=== PATIENT | male | born 1935 | race Caucasian/White ===

== ENCOUNTER 2017-08-13 15:30 | Inpatient (IN) | payer MEDICARE ==
[~2017-08-13] VITALS: Ht 175.3 cm; Wt 83.9 kg
[~2017-08-13 15:30] MED LIST: ROSU10TA35 PO
[2017-08-13 17:18] VITALS: BP 128/63
[2017-08-13 17:25] LABS: BASOPHILS % (AUTO) 0.7 % (0.0-5.0); EOSINOPHILS % (AUTO) 1.7 % (0.0-8.0); HEMATOCRIT 33.8 % (42-54); MEAN CORPUSCULAR HEMOGLOBIN 27.8 pg (27.0-33.0); MEAN CORPUSCULAR HGB CONC 31.9 g/dL (32.0-36.0); MEAN CORPUSCULAR VOLUME 87.1 fL (79-99); NEUTROPHILS % (AUTO) 66.6 % (40.0-77.0); PLATELET COUNT (AUTO) 364 K/uL (130-400); RED BLOOD CELL COUNT(AUTO) 3.88 MIL/uL (4.50-6.20); RED CELL DISTRIBUTION WIDTH 18.2 % (11.0-15.5); WHITE BLOOD COUNT (AUTO) 7.1 K/uL (4.8-10.8)
[2017-08-13 17:34] LABS: CREATININE 1.1 mg/dL (0.5-1.5); POTASSIUM 4.9 mmol/L (3.5-5.1)
[2017-08-13 17:38] LABS: INR 0.97 (0.85-1.15); PROTHROMBIN TIME 10.2 SEC (9.6-11.6)
[2017-08-13] MEDS ORDERED: SENN-77 PO (17:46)
[2017-08-13] MEDS ORDERED: ASPI-1197 PO (17:46)
[2017-08-13] MEDS ORDERED: FERR-82 PO (17:46)
[2017-08-13] MEDS ORDERED: VITAMIN B12 PO (17:46)
[2017-08-13] MEDS ORDERED: GLUCOSAMIN PO (17:46)
[2017-08-13] MEDS ORDERED: FOLIC ACID PO (17:46)
[2017-08-13] MEDS ORDERED: VALS80TA29 PO (17:46)
[2017-08-13] MEDS ORDERED: METOPROLOL PO (17:46)
[2017-08-13] MEDS ORDERED: VALS40TA10 PO (17:46)
[2017-08-13] MEDS ORDERED: PANTOPRAZOLE PO (17:46)
[2017-08-13] MEDS ORDERED: TRAMADOL PO (17:46)
[2017-08-13] MEDS ORDERED: COQ10 PO (17:46)
[2017-08-13 18:01] LABS: APPEARANCE,URINE Cloudy (CLEAR); BILIRUBIN,URINE Negative (NEGATIVE); COLOR,URINE Yellow (YELLOW); GLUCOSE, URINE (UA) Negative (NEGATIVE); KETONES,URINE Negative (NEGATIVE); LEUKOCYTE ESTERASE ,URINE Moderate (NEGATIVE); NITRATE,URINE Positive (NEGATIVE); OCCULT BLOOD,URINE Negative (NEGATIVE); PH,URINE 5.5 (5.0-8.0); PROTEIN,URINE Negative (NEGATIVE); UROBILINOGEN,URINE 0.2 mg/dL (0.2-1.0)
[2017-08-13 18:51] LABS: BACTERIA,URINE Many /HPF (None Seen); RBC,URINE None Seen /HPF (0-1)
[2017-08-14] VITALS (24 sets, daily range): BP systolic 116–139; BP diastolic 55–72
[2017-08-14] MEDS ORDERED: WATER FOR INJECTION,STERILE 20 ML VIAL IJ ONE (08:00)
[2017-08-14] MEDS: CEFAZOLIN SODIUM 1 GM VIAL IVP ONE ×2 (08:00→16:10)
[2017-08-14] MEDS ORDERED: LEVOFLOXACIN 500 MG/D5W 100 ML 100 ML IV SCH (12:00)
[2017-08-14] MEDS ORDERED: LACTATED RINGERS 1000ML 1,000 ML IV ONE (13:28)
[2017-08-14] MEDS: LEVOFLOXACIN 500 MG/D5W 100 ML 100 ML IV SCH (13:42)
[2017-08-14] MEDS ORDERED: CELECOXIB 200 MG CAP ONE (14:44)
[2017-08-14] MEDS ORDERED: KETOROLAC TROMETHAMINE 15MG/ML ONE (14:44)
[2017-08-14] MEDS ORDERED: ACETAMINOPHEN EXTRA STRENGTH 500 MG TABLET ONE (14:44)
[2017-08-14] MEDS ORDERED: OXYCODONE HCL 10 MG TAB.SR.12H PO ONE (14:45)
[2017-08-14] MEDS ORDERED: BUPIVACAINE/EPI/PF 0.5% 30ML VIAL IJ ONE (15:11)
[2017-08-14] MEDS ORDERED: CEFAZOLIN SODIUM 1 GM VIAL ONE (15:11)
[2017-08-14] MEDS ORDERED: LIDOCAINE PF 2% 5ML ABBOJECT ONE (15:27)
[2017-08-14] MEDS ORDERED: NEOSTIGMINE METHYLSULFATE 1MG/ML IV ONE ×2 (15:27→17:36)
[2017-08-14] MEDS ORDERED: LIDOCAINE HCL-MPF 1% 5ML AMP IJ ONE (15:27)
[2017-08-14] MEDS ORDERED: LIDOCAINE HCL 2% JELLY 5 ML ONE (15:27)
[2017-08-14] MEDS ORDERED: LIDOCAINE HCL 4% LTA SOL 4 ML VIAL ONE (15:27)
[2017-08-14] MEDS ORDERED: GLYCOPYRROLATE 0.2 MG/ML 5 ML VIAL ONE ×2 (15:27→17:35)
[2017-08-14] MEDS ORDERED: FENTANYL CITRATE PF 50 MCG/1 ML 2ML VIAL ONE (15:28)
[2017-08-14] MEDS ORDERED: PROPOFOL 10 MG/ML 20ML VIAL IV ONE (15:28)
[2017-08-14] MEDS ORDERED: MIDAZOLAM HCL 1 MG/ML 2ML VIAL ONE (15:28)
[2017-08-14] MEDS: CEFAZOLIN SODIUM 1 GM VIAL ONE ×2 (15:43→16:25)
[2017-08-14] MEDS: TRANEXAMIC ACID 1000MG/10ML IV ONE ×2 (15:45→18:05)
[2017-08-14] MEDS ORDERED: EPHEDRINE SULFATE 50 MG/ML AMPULE ONE (16:00)
[2017-08-14] MEDS: SODIUM CHLORIDE 0.9% 1000ML 1,000 ML IV SCH (17:39)
[2017-08-14] MEDS ORDERED: DIPHENHYDRAMINE HCL 25 MG CAPSULE PO PRN (17:45)
[2017-08-14] MEDS ORDERED: LIDOCAINE HCL-MPF 1% 2ML VIAL IVP PRN (17:45)
[2017-08-14] MEDS ORDERED: DiphenhydrAMINE HCL 50 MG/ML VIAL IVP PRN (17:45)
[2017-08-14] MEDS ORDERED: FERROUS FUMARATE 324 MG TABLET PO PRN (17:45)
[2017-08-14] MEDS ORDERED: OXYCODONE HCL 5 MG TAB PO PRN (17:45)
[2017-08-14] MEDS ORDERED: TRAMADOL HCL 50 MG TABLET PO PRN (17:45)
[2017-08-14] MEDS ORDERED: POTASSIUM CHLORIDE 20MEQ/100ML 100 ML IV PRN (17:45)
[2017-08-14] MEDS ORDERED: TEMAZEPAM 15 MG CAPSULE PO PRN (17:45)
[2017-08-14] MEDS ORDERED: CALCIUM CARBONATE 500 MG TABLET PO PRN (17:45)
[2017-08-14] MEDS ORDERED: POTASSIUM CHLORIDE 20 MEQ ERTAB PO PRN (17:45)
[2017-08-14] MEDS ORDERED: POTASSIUM CHLORIDE 10% ELIXIR 20 MEQ/15 ML UDCUP PO PRN (17:45)
[2017-08-14] MEDS ORDERED: PROMETHAZINE HCL 25 MG/ML 1ML AMPULE IM PRN (17:45)
[2017-08-14] MEDS: ACETAMINOPHEN 325 MG TAB PO SCH ×2 (17:45→22:56)
[2017-08-14] MEDS ORDERED: MEPERIDINE-PF 25 MG/ML SYG ONE ×2 (18:10→18:19)
[2017-08-14] MEDS: KETOROLAC TROMETHAMINE 15MG/ML IV PRN (20:12)
[2017-08-14] MEDS: CELECOXIB 200 MG CAP PO SCH (20:14)
[2017-08-14] MEDS: ASPIRIN 325 MG TABLET PO SCH (20:15)
[2017-08-14] MEDS: PREGABALIN 25 MG CAP PO SCH (20:15)
[2017-08-14] MEDS: FAMOTIDINE 20MG TAB 20 MG TAB PO SCH (20:15)
[2017-08-14] MEDS ORDERED: CEFAZOLIN 2GM / 50 ML 50 ML IV SCH (22:45)
[2017-08-14] MEDS: CEFAZOLIN SODIUM 1 GM VIAL IVP SCH (22:55)
[2017-08-15] VITALS (7 sets, daily range): BP systolic 104–127; BP diastolic 53–69
[2017-08-15] MEDS: SODIUM CHLORIDE 0.9% 1000ML 1,000 ML IV SCH ×2 (03:39→13:39)
[2017-08-15 05:04] LABS: HEMATOCRIT 30.2 % (42-54); MEAN CORPUSCULAR HEMOGLOBIN 28.9 pg (27.0-33.0); MEAN CORPUSCULAR HGB CONC 33.5 g/dL (32.0-36.0); MEAN CORPUSCULAR VOLUME 86.4 fL (79-99); PLATELET COUNT (AUTO) 284 K/uL (130-400); RED BLOOD CELL COUNT(AUTO) 3.49 MIL/uL (4.50-6.20); RED CELL DISTRIBUTION WIDTH 17.9 % (11.0-15.5); WHITE BLOOD COUNT (AUTO) 8.8 K/uL (4.8-10.8)
[2017-08-15 05:14] LABS: CREATININE 1.2 mg/dL (0.5-1.5); POTASSIUM 4.9 mmol/L (3.5-5.1)
[2017-08-15] MEDS: ACETAMINOPHEN 325 MG TAB PO SCH ×4 (05:31→23:38)
[2017-08-15] MEDS: KETOROLAC TROMETHAMINE 15MG/ML IV PRN (05:40)
[2017-08-15] MEDS: CEFAZOLIN SODIUM 1 GM VIAL IVP SCH (05:47)
[2017-08-15] MEDS: ASPIRIN 325 MG TABLET PO SCH ×2 (08:30→19:56)
[2017-08-15] MEDS: PANTOPRAZOLE SODIUM 40 MG TABLET.DR PO SCH (08:30)
[2017-08-15] MEDS: FAMOTIDINE 20MG TAB 20 MG TAB PO SCH ×2 (08:30→19:56)
[2017-08-15] MEDS: TAMSULOSIN HCL 0.4 MG CAP.ER.24H PO SCH (08:30)
[2017-08-15] MEDS: CELECOXIB 200 MG CAP PO SCH ×2 (08:30→19:56)
[2017-08-15] MEDS: POLYETHYLENE GLYCOL 3350 17 GM POWD.PACK PO SCH (08:30)
[2017-08-15] MEDS: PREGABALIN 25 MG CAP PO SCH ×2 (08:30→19:56)
[2017-08-15] MEDS: METOPROLOL TARTRATE 25 MG TAB PO SCH ×2 (08:30→21:00)
[2017-08-15] MEDS: LOSARTAN 50 MG TABLET PO SCH (08:30)
[2017-08-15] MEDS ORDERED: VALSARTAN 40 MG PO SCH (09:00)
[2017-08-15] MEDS ORDERED: [UNRECOGNIZED DRUG - OTHER] PO PRN (09:00)
[2017-08-15] MEDS ORDERED: FERROUS GLUCONATE 325 MG TABLET PO SCH (09:00)
[2017-08-15] MEDS: PSYLLIUM SEED 1 EACH PACKET PO SCH (12:23)
[2017-08-15] MEDS: OXYCODONE HCL 5 MG TAB PO PRN (12:24)
[2017-08-15] MEDS: LEVOFLOXACIN 500 MG/D5W 100 ML 100 ML IV SCH (12:25)
[2017-08-15] MEDS: FERROUS GLUCONATE 325 MG TABLET PO SCH ×2 (21:00→21:56)
[2017-08-15] MEDS ORDERED: ATORVASTATIN CALCIUM 20 MG TABLET PO SCH (21:00)
[2017-08-16] MEDS: OXYCODONE HCL 5 MG TAB PO PRN ×3 (04:07→15:11)
[2017-08-16 04:33] VITALS: BP 129/66
[2017-08-16] MEDS: KETOROLAC TROMETHAMINE 15MG/ML IV PRN (05:16)
[2017-08-16] MEDS: ACETAMINOPHEN 325 MG TAB PO SCH ×3 (05:17→17:40)
[2017-08-16 05:30] LABS: HEMATOCRIT 27.3 % (42-54); MEAN CORPUSCULAR HEMOGLOBIN 28.5 pg (27.0-33.0); MEAN CORPUSCULAR HGB CONC 33.1 g/dL (32.0-36.0); MEAN CORPUSCULAR VOLUME 86.2 fL (79-99); PLATELET COUNT (AUTO) 259 K/uL (130-400); RED BLOOD CELL COUNT(AUTO) 3.17 MIL/uL (4.50-6.20); RED CELL DISTRIBUTION WIDTH 17.7 % (11.0-15.5); WHITE BLOOD COUNT (AUTO) 7.7 K/uL (4.8-10.8)
[2017-08-16 05:40] LABS: CREATININE 1.4 mg/dL (0.5-1.5); POTASSIUM 4.4 mmol/L (3.5-5.1)
[2017-08-16 07:56] VITALS: BP 128/65
[2017-08-16] MEDS: PANTOPRAZOLE SODIUM 40 MG TABLET.DR PO SCH (08:58)
[2017-08-16] MEDS: LOSARTAN 50 MG TABLET PO SCH (08:58)
[2017-08-16] MEDS: FERROUS GLUCONATE 325 MG TABLET PO SCH ×2 (08:58→13:47)
[2017-08-16] MEDS: METOPROLOL TARTRATE 25 MG TAB PO SCH (08:58)
[2017-08-16] MEDS: POLYETHYLENE GLYCOL 3350 17 GM POWD.PACK PO SCH (08:58)
[2017-08-16] MEDS: ASPIRIN 325 MG TABLET PO SCH (08:58)
[2017-08-16] MEDS: CELECOXIB 200 MG CAP PO SCH (08:58)
[2017-08-16] MEDS: PREGABALIN 25 MG CAP PO SCH (08:59)
[2017-08-16] MEDS: TAMSULOSIN HCL 0.4 MG CAP.ER.24H PO SCH (08:59)
[2017-08-16] MEDS: FAMOTIDINE 20MG TAB 20 MG TAB PO SCH (08:59)
[2017-08-16 11:31] VITALS: BP 113/60
[2017-08-16] MEDS: PSYLLIUM SEED 1 EACH PACKET PO SCH (11:36)
[2017-08-16] MEDS ORDERED: ASPI-1012 PO (12:19)
[2017-08-16] MEDS ORDERED: HYDR-309 PO (12:19)
[2017-08-16] MEDS ORDERED: LEVO500T89 PO (12:21)
[2017-08-16] MEDS: LEVOFLOXACIN 500 MG/D5W 100 ML 100 ML IV SCH (13:30)
[2017-08-16 15:41] VITALS: BP 111/60
[2017-08-16] MEDS ORDERED: BISACODYL 5 MG TABLET.DR PO PRN (17:45)
[2017-08-17] MEDS ORDERED: BISACODYL 10 MG SUPP.RECT RC PRN (17:45)
== END 2017-08-16 19:08 | DRG 470 ==
LOC: EDSTATUS 15:30 → DAHIP 08-14 01:10 → 4BH 08-14 18:37
PROVIDERS: ADMIT Orthopaedic Surgery; ATTEND Orthopaedic Surgery
PROC: 0SRC0JZ Replacement of Right Knee Joint with Synthetic Substitute, Open Approach (ICD-10-PCS; principal; 2017-08-14 15:43)
DX: M17.11 Unilateral primary osteoarthritis, right knee (principal); Z95.1 Presence of aortocoronary bypass graft; G89.29 Other chronic pain; I10 Essential (primary) hypertension; Z86.73 Personal history of transient ischemic attack (TIA), and cerebral infarction without residual deficits; I25.10 Atherosclerotic heart disease of native coronary artery without angina pectoris
CPT/HCPCS: 36415; 80048; 81001; 85025; 85027; 85610; 85730; 88305; 88311; 96374; 96375; A4218; C1713; J0690; J1885; J1956; J2001; J2175; J2250; J2704; J2710; J3010; J3490; J7030; J7120

== ENCOUNTER 2019-02-12 08:25 | Emergency (ER) | payer MEDICARE ==
[~2019-02-12 08:25] MED LIST changes: +ASPI-1012 PO; +COQ10 PO; +FERR-82 PO; +FOLIC ACID PO; +GLUCOSAMIN PO; +HYDR-4457 PO; +LEVO500T89 PO; +METOPROLOL PO; +PANTOPRAZOLE PO; +ROSU10TA28 PO; -ROSU10TA35 PO; +SENN-265 PO; +VALS40TA11 PO; +VALS80TA30 PO; +VITAMIN B12 PO
[2019-02-12 09:26] LABS: BASOPHILS % (AUTO) 0.7 % (0.0-5.0); EOSINOPHILS % (AUTO) 0.3 % (0.0-8.0); LYMPHOCYTES % (AUTO) 11.1 % (21.0-51.0); MEAN CORPUSCULAR HEMOGLOBIN 30.8 pg (27.0-33.0); MEAN CORPUSCULAR HGB CONC 32.9 g/dL (32.0-36.0); MEAN CORPUSCULAR VOLUME 93.5 fL (79-99); MONOCYTES % (AUTO) 13.2 % (3.0-13.0); NEUTROPHILS % (AUTO) 74.7 % (40.0-77.0); PLATELET COUNT (AUTO) 304 K/uL (130-400); RED BLOOD CELL COUNT(AUTO) 3.21 MIL/uL (4.50-6.20); RED CELL DISTRIBUTION WIDTH 14.9 % (11.0-15.5); WHITE BLOOD COUNT (AUTO) 9.7 K/uL (4.8-10.8)
[2019-02-12 09:35] LABS: CREATININE 1.4 mg/dL (0.5-1.5); POTASSIUM 3.9 mmol/L (3.5-5.1)
[2019-02-12 09:40] LABS: ALBUMIN 3.2 g/dL (3.5-5.0); BILIRUBIN,TOTAL 0.9 mg/dL (0.2-1.0); TOTAL PROTEIN, SERUM 7.2 g/dL (6.0-8.3)
[2019-02-12 09:47] LABS: INR 0.96 (0.85-1.15); PARTIAL THROMBOPLASTIN TIME 31.5 SEC (26.3-35.5); PROTHROMBIN TIME 10.1 SEC (9.6-11.6)
== END 2019-02-12 11:59 | disposition home or self-care (01) ==
LOC: EDH 08:25
DX: K92.2 Gastrointestinal hemorrhage, unspecified (principal); D50.0 Iron deficiency anemia secondary to blood loss (chronic); E78.5 Hyperlipidemia, unspecified; I25.10 Atherosclerotic heart disease of native coronary artery without angina pectoris; Z86.73 Personal history of transient ischemic attack (TIA), and cerebral infarction without residual deficits; Z79.899 Other long term (current) drug therapy
CPT/HCPCS: 36415; 80053; 85025; 85610; 85730; 86850; 86900; 86901

== ENCOUNTER → 2019-03-13 | Outpatient (CLI) | payer MEDICARE ==
[~2019-03-13] MED LIST changes: -LEVO500T89 PO; -PANTOPRAZOLE PO; -VALS40TA11 PO; -VALS80TA30 PO
== END | disposition home or self-care (01) ==
LOC: RAH 08:21
PROVIDERS: ATTEND Family Medicine
DX: K63.89 Other specified diseases of intestine (principal)
CPT/HCPCS: 74176

== ENCOUNTER 2019-05-12 23:28 | Inpatient (IN) | payer MEDICARE ==
[~2019-05-12] VITALS: Ht 175.3 cm; Wt 83.8 kg
[2019-05-13 00:48] LABS: BASOPHILS % (AUTO) 0.3 % (0.0-5.0); EOSINOPHILS % (AUTO) 0.4 % (0.0-8.0); HEMATOCRIT 39.5 % (42-54); LYMPHOCYTES % (AUTO) 12.6 % (21.0-51.0); MEAN CORPUSCULAR HEMOGLOBIN 28.6 pg (27.0-33.0); MEAN CORPUSCULAR HGB CONC 32.3 g/dL (32.0-36.0); MEAN CORPUSCULAR VOLUME 88.6 fL (79-99); MONOCYTES % (AUTO) 8.9 % (3.0-13.0); NEUTROPHILS % (AUTO) 77.8 % (40.0-77.0); NUCLEATED RED BLOOD CELLS 0.1 % (0.0-0.19); PLATELET COUNT (AUTO) 222 K/uL (130-400); RED BLOOD CELL COUNT(AUTO) 4.46 MIL/uL (4.50-6.20); RED CELL DISTRIBUTION WIDTH 16.9 % (11.0-15.5)
[2019-05-13 00:55] LABS: CREATININE 1.2 mg/dL (0.5-1.5); POTASSIUM 4.2 mmol/L (3.5-5.1)
[2019-05-13 00:59] LABS: ALBUMIN 3.6 g/dL (3.5-5.0); BILIRUBIN,TOTAL 1.5 mg/dL (0.2-1.0)
[2019-05-13] MEDS ORDERED: IOHEXOL-350 75 ML VIAL IV ONE (01:19)
[2019-05-13 02:39] LABS: APPEARANCE,URINE Clear (CLEAR); BILIRUBIN,URINE Small (NEGATIVE); COLOR,URINE Dark Yellow (YELLOW); GLUCOSE, URINE (UA) Negative (NEGATIVE); KETONES,URINE Negative (NEGATIVE); LEUKOCYTE ESTERASE ,URINE Negative (NEGATIVE); NITRATE,URINE Negative (NEGATIVE); OCCULT BLOOD,URINE Negative (NEGATIVE); PROTEIN,URINE POS 1+ mg/dL (NEGATIVE)
[2019-05-13] MEDS ORDERED: ZOSYN 3.375GM+NS 50ML 50 ML IV ONE ×2 (03:56→11:25)
[2019-05-13] MEDS: LACTATED RINGERS 1000ML 1,000 ML IV SCH ×2 (04:45→18:05)
[2019-05-13] MEDS ORDERED: MORPHINE SULFATE 2 MG/ML 1ML SYG IV PRN (04:45)
[2019-05-13] MEDS: ZOSYN 3.375GM+NS 50ML 50 ML IV SCH ×3 (04:45→20:25)
[2019-05-13] MEDS ORDERED: ONDANSETRON HCL 4 MG/2 ML VIAL IVP PRN (04:45)
[2019-05-13] MEDS ORDERED: LACTATED RINGERS 1000ML 1,000 ML IV ONE (05:43)
[2019-05-13] MEDS ORDERED: PHARMACY COMMUNICATION MISC SCH (05:45)
[2019-05-13] MEDS ORDERED: MORPHINE SULFATE 2 MG/ML 1ML SYG ONE ×2 (05:47→09:07)
[2019-05-13] MEDS ORDERED: GADODIAMIDE 10 MMOL/20 ML VIAL IV ONE (08:04)
[2019-05-13] MEDS ORDERED: FAMOTIDINE/PF 20 MG/2 ML VIAL IV SCH (09:00)
[2019-05-13] MEDS: FAMOTIDINE/PF 20 MG/2 ML VIAL IV SCH (09:30)
[2019-05-13] MEDS ORDERED: FAMOTIDINE/PF 20 MG/2 ML VIAL IV ONE (10:18)
[2019-05-13] MEDS ORDERED: HYDRALAZINE HCL 20 MG/ML VIAL IV PRN (11:00)
[2019-05-13] MEDS ORDERED: MORPHINE SULFATE 4 MG/1ML SYG ONE (13:53)
[2019-05-13 15:55] VITALS: BP 143/71
[2019-05-13 19:15] VITALS: BP 141/61
[2019-05-13] MEDS: MORPHINE SULFATE 2 MG/ML 1ML SYG IV PRN (20:26)
[2019-05-13] MEDS ORDERED: METOPROLOL PO (22:24)
[2019-05-13] MEDS ORDERED: ASPI-555 PO (22:24)
[2019-05-13] MEDS ORDERED: ROSU10TA28 PO (22:24)
[2019-05-13] MEDS ORDERED: CYAN250010 PO (22:24)
[2019-05-13] MEDS ORDERED: FERR240T10 PO (22:24)
[2019-05-13] MEDS ORDERED: UBID400C6 PO (22:24)
[2019-05-13] MEDS ORDERED: AMLO5TAB9 PO (22:24)
[2019-05-13] MEDS ORDERED: PANT40TA PO (22:24)
[2019-05-13 23:15] VITALS: BP 119/63
[2019-05-14 03:30] VITALS: BP 127/65
[2019-05-14] MEDS: LACTATED RINGERS 1000ML 1,000 ML IV SCH ×2 (04:23→20:57)
[2019-05-14] MEDS: ZOSYN 3.375GM+NS 50ML 50 ML IV SCH ×3 (04:25→20:58)
[2019-05-14 05:10] LABS: BASOPHILS % (AUTO) 0.3 % (0.0-5.0); EOSINOPHILS % (AUTO) 0.5 % (0.0-8.0); HEMATOCRIT 36.5 % (42-54); LYMPHOCYTES % (AUTO) 7.5 % (21.0-51.0); MEAN CORPUSCULAR HGB CONC 33.1 g/dL (32.0-36.0); MEAN CORPUSCULAR VOLUME 87.7 fL (79-99); MONOCYTES % (AUTO) 8.4 % (3.0-13.0); NEUTROPHILS % (AUTO) 83.3 % (40.0-77.0); PLATELET COUNT (AUTO) 202 K/uL (130-400); RED BLOOD CELL COUNT(AUTO) 4.16 MIL/uL (4.50-6.20); RED CELL DISTRIBUTION WIDTH 17.4 % (11.0-15.5); WHITE BLOOD COUNT (AUTO) 10.1 K/uL (4.8-10.8)
[2019-05-14 05:32] LABS: ALBUMIN 2.6 g/dL (3.5-5.0); BILIRUBIN,TOTAL 3.1 mg/dL (0.2-1.0); CREATININE 1.2 mg/dL (0.5-1.5); POTASSIUM 4.3 mmol/L (3.5-5.1); TOTAL PROTEIN, SERUM 6.3 g/dL (6.0-8.3)
[2019-05-14 05:42] LABS: INR 1.03 (0.85-1.15); PROTHROMBIN TIME 10.8 SEC (9.6-11.6)
[2019-05-14 08:04] VITALS: BP 118/65
[2019-05-14] MEDS: FAMOTIDINE/PF 20 MG/2 ML VIAL IV SCH (09:00)
[2019-05-14 11:46] VITALS: BP 118/68
--- NOTE | 2019-05-14 12:16 | NUR ---
Dr. Gilma fulton. Dr. Gilma fulton, notified and made aware about pt cardiac clearance, states she will keep nursing posted.
--- NOTE | 2019-05-14 15:32 | NUR ---
DCP CM met with pt discussed dc plans. Pt is independent prior to admission, lives at home alone, has a friend NELIA that lives close by. Denies any equipments/services. Feels safe to go back home, arranges own needs, friend Trice Morataya able to assist with transportation as necessary. Offered possible short term placement as pt will be having possible surgery. Pt states he wants to wait until after surgery, prefers to go home as much as possible. DC plan to home vs SNF. CM to cont to follow up. Addendum: 05/14/19 at 1534 by SHANE ENGEL LVN CM Amended: Links added.
[2019-05-14 15:58] VITALS: BP 112/72
[2019-05-14 15:59] LABS: INR 1.02 (0.85-1.15); PARTIAL THROMBOPLASTIN TIME 34.4 SEC (26.3-35.5); PROTHROMBIN TIME 10.7 SEC (9.6-11.6)
[2019-05-14 20:00] VITALS: BP 115/70
[2019-05-15] VITALS (29 sets, daily range): BP systolic 121–165; BP diastolic 41–88
[2019-05-15] MEDS: ZOSYN 3.375GM+NS 50ML 50 ML IV SCH ×3 (05:01→21:12)
[2019-05-15] MEDS: FAMOTIDINE/PF 20 MG/2 ML VIAL IV SCH (09:25)
[2019-05-15] MEDS: LACTATED RINGERS 1000ML 1,000 ML IV SCH (09:49)
[2019-05-15] MEDS ORDERED: TRAMADOL HCL 50 MG TABLET PO PRN (10:30)
[2019-05-15] MEDS ORDERED: TRAM50TA4 PO (10:33)
[2019-05-15 10:45] LABS: BASOPHILS % (AUTO) 0.5 % (0.0-5.0); EOSINOPHILS % (AUTO) 1.6 % (0.0-8.0); MEAN CORPUSCULAR HEMOGLOBIN 28.8 pg (27.0-33.0); MEAN CORPUSCULAR HGB CONC 32.8 g/dL (32.0-36.0); MEAN CORPUSCULAR VOLUME 87.9 fL (79-99); MONOCYTES % (AUTO) 7.2 % (3.0-13.0); NEUTROPHILS % (AUTO) 78.7 % (40.0-77.0); PLATELET COUNT (AUTO) 246 K/uL (130-400); RED BLOOD CELL COUNT(AUTO) 4.21 MIL/uL (4.50-6.20); RED CELL DISTRIBUTION WIDTH 17.2 % (11.0-15.5); WHITE BLOOD COUNT (AUTO) 7.1 K/uL (4.8-10.8)
[2019-05-15 11:41] LABS: ALBUMIN 2.8 g/dL (3.5-5.0); BILIRUBIN,TOTAL 1.2 mg/dL (0.2-1.0); CREATININE 1.1 mg/dL (0.5-1.5); POTASSIUM 4.1 mmol/L (3.5-5.1)
--- NOTE | 2019-05-15 13:29 | NUR ---
Pt update Pt off the floor for lap magdi with possible open at this time with Dr. Dillard. Nursing will continue to monitor.
[2019-05-15] MEDS ORDERED: BUPIVACAINE/PF 0.5% 30ML VIAL ONE (13:48)
[2019-05-15] MEDS ORDERED: MIDAZOLAM HCL 1 MG/ML 2ML VIAL ONE (14:05)
[2019-05-15] MEDS ORDERED: PROPOFOL 10 MG/ML 20ML VIAL IV ONE (14:11)
[2019-05-15] MEDS ORDERED: SUCCINYLCHOLINE 200MG/10ML SYR ONE (14:11)
[2019-05-15] MEDS ORDERED: LIDOCAINE PF 2% 5ML ABBOJECT ONE (14:11)
[2019-05-15] MEDS ORDERED: ROCURONIUM 10MG/1ML SYR 10 MG/ML ML ONE (14:12)
[2019-05-15] MEDS ORDERED: MEPERIDINE-PF 25 MG/ML SYG ONE (15:05)
[2019-05-15] MEDS ORDERED: NEOSTIGMINE 5MG/5ML SYR IV ONE (15:07)
[2019-05-15] MEDS ORDERED: GLYCOPYRROLATE 1 MG/5 ML SYRINGE ONE (15:07)
[2019-05-15] MEDS ORDERED: FENTANYL CITRATE PF 50 MCG/1 ML 2ML VIAL ONE ×2 (15:26→16:04)
[2019-05-15] MEDS ORDERED: MORPHINE SULFATE 4 MG/1ML SYG IV PRN (15:30)
[2019-05-15] MEDS ORDERED: ONDANSETRON HCL 4 MG/2 ML VIAL IVP PRN (15:30)
[2019-05-15] MEDS ORDERED: KETOROLAC TROMETHAMINE 30MG/ML ONE (16:06)
--- NOTE | 2019-05-15 16:10 | NUR ---
DR. BETANCUR NOTIFIED OF PT'S RT FLANK PAIN. ORDERS GIVEN FOR SIMETHICONE AND TORADOL. Addendum: 05/15/19 at 1616 by HERBERTH LYNCH RN RN Amended: Links added.
[2019-05-15] MEDS ORDERED: SIMETHICONE 80 MG TAB.CHEW ONE (16:15)
--- NOTE | 2019-05-15 17:11 | NUR ---
H/H RESULTS GIVEN TO MANJINDER HILARIO. ORDERS GIVEN TO SENT PT TO HIS RM. PT MORE COMFORTABLE. Addendum: 05/15/19 at 1724 by HERBERTH LYNCH RN RN Amended: Links added.
[2019-05-16 00:18] VITALS: BP 112/72
[2019-05-16 04:20] VITALS: BP 146/75
[2019-05-16 04:54] LABS: ALBUMIN 2.4 g/dL (3.5-5.0); BILIRUBIN,TOTAL 0.8 mg/dL (0.2-1.0); CREATININE 1.1 mg/dL (0.5-1.5); POTASSIUM 4.4 mmol/L (3.5-5.1); TOTAL PROTEIN, SERUM 6.2 g/dL (6.0-8.3)
[2019-05-16] MEDS: ZOSYN 3.375GM+NS 50ML 50 ML IV SCH ×3 (04:56→20:45)
[2019-05-16 08:00] VITALS: BP 146/73
[2019-05-16] MEDS: FAMOTIDINE/PF 20 MG/2 ML VIAL IV SCH (09:12)
--- NOTE | 2019-05-16 11:12 | NUR ---
GASTROENTEROLOGY CONSULT Dr. Harrell paged for consult. Pending for him to call back. Patient c/o blood in his stool. He was asked to keep stool available, not to flush toilet, not to have bed changed. There was visible blood in his stool in toilet. He explained he has a historyof lower GI bleed and that he has a bleeding spot in his colon but that it is not reachable and that he is on surveillance by body fitter Dr. Liang, with whom he has a follow up appointment this Saturday. Shikha Metz, Nurse Practitioner for hospitalist Dr. Pereira, was paged and notified and she ordered the GI consult. Nun's cap placed in toilet and a stool sample is pending for occult blood as ordered by Shikha; patient aware to use nun's cap for next stool. Patient and family updated; verbalized and demonstrated understanding.
[2019-05-16 12:00] VITALS: BP 119/67
--- NOTE | 2019-05-16 12:49 | NUR ---
STOOL SAMPLE Sent sample to lab for occult blood.
[2019-05-16] MEDS: LACTATED RINGERS 1000ML 1,000 ML IV SCH (13:44)
[2019-05-16 14:20] LABS: HEMATOCRIT 34.5 % (42-54)
[2019-05-16 16:00] VITALS: BP 118/63
--- NOTE | 2019-05-16 18:24 | NUR ---
TRANSFER TO ICU Patient has been having several rectal bleeding episodes. A sample was sent to lab for occult blood and it is positive. Dr. Harrell was called for consult and he called back. Stated to print Pathology Report from previous hospitalization and call him back. Records were obtained and placed in chart and he was called back; pending for Dr. Harrell to call back. Pathology Report mentions adenocarcinoma. Report shown to shikha Metz, Nurse PRactitioner, who informed Dr. Pereira. Dr. Pereira and Shikha made their rounds before report was printed. And Dr. Pereira gave orders to transfer patient to ICU for monitoring S/T frequency of bloody stools. Patient reports he has gone a total of 8 times since AM up to this time. Patient was started on serial H&H Q6H. Also, on a protonix drip. And he will go to room # 205. Nurse Mcclelland aware and waiting for patient. Patient transferred at this time. Asymptomatic. HR in the 60s. Dr. Harrell still pending to call back. Shikha stated not to call oncology just yet.
[2019-05-16 18:43] LABS: HEMATOCRIT 28.6 % (42-54)
[2019-05-16 19:17] VITALS: BP 136/57
[2019-05-16] MEDS: PANTOPRAZOLE SODIUM 80 MG in SODIUM CHLORIDE 0.9% 100 ML IV SCH (21:12)
[2019-05-17] VITALS (7 sets, daily range): BP systolic 103–139; BP diastolic 62–83
[2019-05-17 00:27] LABS: HEMATOCRIT 26.9 % (42-54)
--- NOTE | 2019-05-17 03:44 | NUR ---
CO[employer]ER [employer]ORAL MERCHANDISER NOTIFIED patient upset, stated that he wants something done now , he has been "bleeding since 8am and no one has done a thing about it" he reports 14 blood loose stools since 8am. as per nursing report , Dr Arriaga was notified of consult and requested a pathology report that was placed in the chart . Informed patient that Dr. Arriaga was aware but has not been by. patient wants to be seen now or wants to be sent to er. Paged ALEJANDRO GARCIA social media content specialist for hospitalist and informed him of situation, the team is aware and patient is stable so md will round on patient in the am. patient is stable, he denies n/v, diaphoresis, sob, chest pain, palpitations or dizziness. vss, no changes in telemetry monitoring. will continue to monitor Addendum: 05/17/19 at 0546 by ELAINE MAYS RN Informed Fercho of change in H&H from 12 to 9.0 . informed him of standing order to transfuse if hg <7 and next lab draw is scheduled for 6am, was instructed to wait until next lab draw and follow standing order. updated patient and informed him that primary team was aware, patient is still upset and wants an answer as to why he is having blood stools now. Updated him on the plan, the labs that are being done, the stool we sent for testing, the pathology report that was requested by dr arriaga and how everything was in the chart and in place. I informed him that i spoke with ALEJANDRO GARCIA social media content specialist . patient is not happy with information given, will pass on in report for follow up
[2019-05-17] MEDS: MORPHINE SULFATE 2 MG/ML 1ML SYG IV PRN (04:50)
[2019-05-17] MEDS: ZOSYN 3.375GM+NS 50ML 50 ML IV SCH ×3 (04:51→22:21)
[2019-05-17 06:27] LABS: BASOPHILS % (AUTO) 0.3 % (0.0-5.0); EOSINOPHILS % (AUTO) 1.3 % (0.0-8.0); HEMATOCRIT 24.8 % (42-54); LYMPHOCYTES % (AUTO) 13.4 % (21.0-51.0); MEAN CORPUSCULAR HEMOGLOBIN 29.2 pg (27.0-33.0); MEAN CORPUSCULAR HGB CONC 33.5 g/dL (32.0-36.0); MEAN CORPUSCULAR VOLUME 87.1 fL (79-99); MONOCYTES % (AUTO) 9.4 % (3.0-13.0); NEUTROPHILS % (AUTO) 75.6 % (40.0-77.0); PLATELET COUNT (AUTO) 237 K/uL (130-400); RED BLOOD CELL COUNT(AUTO) 2.84 MIL/uL (4.50-6.20); RED CELL DISTRIBUTION WIDTH 16.9 % (11.0-15.5); WHITE BLOOD COUNT (AUTO) 6.5 K/uL (4.8-10.8)
[2019-05-17 06:39] LABS: CREATININE 1.1 mg/dL (0.5-1.5); POTASSIUM 3.9 mmol/L (3.5-5.1)
[2019-05-17] MEDS ORDERED: PANTOPRAZOLE 40 MG/VIAL IVP SCH ×2 (09:00→13:15)
[2019-05-17] MEDS ORDERED: PANTOPRAZOLE 40 MG/VIAL IV SCH (10:30)
[2019-05-17] MEDS ORDERED: LACTULOSE 20 GM/30 ML UDCUP PO SCH (10:30)
[2019-05-17] MEDS ORDERED: PANTOPRAZOLE SODIUM 80 MG in NS 100ML IVP SCH (10:45)
[2019-05-17] MEDS ORDERED: MAGNESIUM CITRATE 296 ML SOLUTION PO SCH (12:00)
[2019-05-17 13:36] LABS: HEMATOCRIT 25.2 % (42-54)
[2019-05-17] MEDS ORDERED: PEG 3350/NA SULF,BICARB,CL/KCL 4000 ML SOLN PO SCH (14:00)
[2019-05-17] MEDS: LACTATED RINGERS 1000ML 1,000 ML IV SCH (15:32)
[2019-05-17 18:59] LABS: HEMATOCRIT 28.9 % (42-54)
[2019-05-18] VITALS (17 sets, daily range): BP systolic 105–157; BP diastolic 40–92
[2019-05-18 00:30] LABS: HEMATOCRIT 21.9 % (42-54)
[2019-05-18] MEDS ORDERED: SODIUM CHLORIDE 0.9% 100 ML IV ONE (02:05)
[2019-05-18] MEDS: PANTOPRAZOLE SODIUM 80 MG in SODIUM CHLORIDE 0.9% 100 ML IV SCH (02:28)
[2019-05-18] MEDS: ZOSYN 3.375GM+NS 50ML 50 ML IV SCH ×3 (05:03→21:49)
[2019-05-18 05:57] LABS: HEMATOCRIT 21.9 % (42-54); MEAN CORPUSCULAR HEMOGLOBIN 28.5 pg (27.0-33.0); MEAN CORPUSCULAR HGB CONC 32.6 g/dL (32.0-36.0); MEAN CORPUSCULAR VOLUME 87.5 fL (79-99); PLATELET COUNT (AUTO) 218 K/uL (130-400); WHITE BLOOD COUNT (AUTO) 6.2 K/uL (4.8-10.8)
[2019-05-18 06:05] LABS: BASOPHILS % (MANUAL) 2 % (0-2); EOSINOPHILS % (MANUAL) 2 % (1-6); LYMPHOCYTES % (MANUAL) 26 % (22-44); MAN.DIFF COMMENT-IMPRESSION MANUAL DIFFERENTIAL; MONOCYTES % (MANUAL) 8 % (2-9); PLATELET MORPHOLOGY COMMENT ADEQUATE; SEGMENTED NEUTROPHILS % 62 % (40-70)
[2019-05-18 06:07] LABS: CREATININE 1.2 mg/dL (0.5-1.5); MAGNESIUM 1.7 mg/dL (1.80-2.40); POTASSIUM 4.2 mmol/L (3.5-5.1)
[2019-05-18 06:09] LABS: PARTIAL THROMBOPLASTIN TIME 27.7 SEC (26.3-35.5); PROTHROMBIN TIME 10.5 SEC (9.6-11.6)
[2019-05-18] MEDS ORDERED: MORPHINE SULFATE 2 MG/ML 1ML SYG IV PRN (08:15)
[2019-05-18] MEDS ORDERED: ACETAMINOPHEN-CODEINE 300/30MG TAB PO PRN (08:15)
[2019-05-18 09:02] LABS: HEMATOCRIT 23.1 % (42-54)
[2019-05-18] MEDS ORDERED: SODIUM CHLORIDE 0.9% 500ML 500 ML IV ONE (09:15)
[2019-05-18] MEDS ORDERED: SUCCINYLCHOLINE CHLORIDE 20 MG/ML 10 ML VIAL ONE (12:37)
[2019-05-18] MEDS ORDERED: GLYCOPYRROLATE 0.2 MG/ML 5 ML VIAL ONE (12:37)
[2019-05-18] MEDS ORDERED: PROPOFOL 10 MG/ML 20ML VIAL IV ONE (12:37)
[2019-05-18 14:17] LABS: HEMATOCRIT 21.6 % (42-54)
--- NOTE | 2019-05-18 17:49 | NUR ---
Nutrition Intervention: Nutrition screen based on LOS x 5 days. Pt. admitted with Dx of Acute Cholecystitis. Pt. S/P Lap Cuca(05/15/19). Pt. NPO for Nuclear test, as per pt. Pt. previously on GI Soft Green diet with poor p.o. intake, as per pt. Labs reviewed(Alb 2.4, AST 86, Mg 1.7). Spoke with pt. regarding nutritional supplementation when diet advanced and pt. stated willing to try. LBM: 05/17/19, loose. SR-19, abd. incision. BMI: 27.4, overweight. Recommendations: 1) When medically feasible, rec. Heart Healthy GI Soft Green diet with [place] Ensure supp. QD. 2) Continue to monitor pt's nutritional status. 3) Consult RD as nutrition concerns arise. Addendum: 05/18/19 at [address] Amended: Links added.
[2019-05-18 21:26] LABS: HEMATOCRIT 23.9 % (42-54)
[2019-05-19] MEDS: PANTOPRAZOLE SODIUM 80 MG in SODIUM CHLORIDE 0.9% 100 ML IV SCH ×2 (01:36→13:30)
[2019-05-19] MEDS: ZOSYN 3.375GM+NS 50ML 50 ML IV SCH ×3 (03:58→21:39)
[2019-05-19 04:10] VITALS: BP 147/68
[2019-05-19 07:00] VITALS: BP 141/67
[2019-05-19 09:38] LABS: HEMATOCRIT 25.5 % (42-54)
[2019-05-19 11:00] VITALS: BP 123/65
[2019-05-19] MEDS ORDERED: EPOETIN ALFA 10,000 UNIT/ML VIAL SQ SCH (13:15)
--- NOTE | 2019-05-19 14:20 | NUR ---
CALLED CONSULT TO DR. BECKER SPOKE WITH [facility] FROM HIS OFFICE. [facility] REPORTS WILL NOTIFY DR. BECKER. WILL CONTINUE TO MONITOR.
[2019-05-19 14:47] LABS: HEMATOCRIT 23.9 % (42-54)
[2019-05-19 15:00] VITALS: BP 125/60
[2019-05-19 19:10] VITALS: BP 131/73
[2019-05-19 21:34] LABS: HEMATOCRIT 24.3 % (42-54)
[2019-05-19 23:11] VITALS: BP 136/64
--- NOTE | 2019-05-19 23:18 | NUR ---
Dr Dias made aware of hgb hct 8.0/24.3
[2019-05-20 03:52] VITALS: BP 137/67
[2019-05-20 04:00] LABS: HEMATOCRIT 24.3 % (42-54); MEAN CORPUSCULAR HEMOGLOBIN 29.7 pg (27.0-33.0); MEAN CORPUSCULAR HGB CONC 33.6 g/dL (32.0-36.0); MEAN CORPUSCULAR VOLUME 88.4 fL (79-99); NUCLEATED RED BLOOD CELLS 0.2 % (0.0-0.19); PLATELET COUNT (AUTO) 316 K/uL (130-400); RED BLOOD CELL COUNT(AUTO) 2.75 MIL/uL (4.50-6.20); RED CELL DISTRIBUTION WIDTH 16.7 % (11.0-15.5); WHITE BLOOD COUNT (AUTO) 7.1 K/uL (4.8-10.8)
[2019-05-20 04:15] LABS: ALBUMIN 2.5 g/dL (3.5-5.0); BILIRUBIN,TOTAL 0.6 mg/dL (0.2-1.0); CREATININE 1.2 mg/dL (0.5-1.5); MAGNESIUM 1.6 mg/dL (1.80-2.40); PHOSPHORUS 3.8 mg/dL (2.5-4.9); POTASSIUM 3.8 mmol/L (3.5-5.1); TOTAL PROTEIN, SERUM 5.6 g/dL (6.0-8.3)
[2019-05-20] MEDS: ZOSYN 3.375GM+NS 50ML 50 ML IV SCH ×2 (05:53→13:42)
[2019-05-20 07:40] VITALS: BP 147/75
[2019-05-20] MEDS ORDERED: MAGNESIUM OXIDE 400 MG TABLET PO SCH (09:00)
[2019-05-20 11:16] VITALS: BP 120/80
[2019-05-20 12:27] LABS: % IRON SATURATION 7.5 % (30-44)
[2019-05-20] MEDS: PANTOPRAZOLE SODIUM 80 MG in SODIUM CHLORIDE 0.9% 100 ML IV SCH (13:52)
[2019-05-20 14:47] VITALS: BP 123/70
[2019-05-20] MEDS ORDERED: TRAM50TA4 PO (18:36)
[2019-05-20] MEDS ORDERED: FERR324T4 PO (18:36)
[2019-05-20] MEDS ORDERED: MAGOX PO (18:36)
[2019-05-20] MEDS ORDERED: PANT40TA PO (18:36)
[2019-05-20] MEDS ORDERED: ASCO500T9 PO (18:36)
[2019-05-20] MEDS ORDERED: EPOETIN ALFA 10,000 UNIT/ML VIAL SQ SCH (18:45)
[2019-05-20] MEDS ORDERED: PANTOPRAZOLE SODIUM 40 MG TABLET.DR PO SCH (21:00)
[2019-05-21] MEDS ORDERED: FERROUS SULFATE 325 MG TABLET.DR PO SCH (09:00)
[2019-05-21] MEDS ORDERED: ASCORBIC ACID 500 MG TAB PO SCH (09:00)
== END 2019-05-20 19:53 | disposition home or self-care (01) | DRG 417 ==
LOC: EDH 23:28 → EDHIP 05-13 04:41 → 3DH 05-13 15:47 → 2AH 05-16 18:47
PROVIDERS: ADMIT Internal Medicine; ATTEND Internal Medicine
PROC: 0FT44ZZ Resection of Gallbladder, Percutaneous Endoscopic Approach (ICD-10-PCS; principal; 2019-05-15 14:05)
PROC: 0DJD8ZZ Inspection of Lower Intestinal Tract, Via Natural or Artificial Opening Endoscopic (ICD-10-PCS; 2019-05-18)
DX: K81.0 Acute cholecystitis (principal); K57.31 Diverticulosis of large intestine without perforation or abscess with bleeding; D62 Acute posthemorrhagic anemia; N28.1 Cyst of kidney, acquired; E86.0 Dehydration; R73.9 Hyperglycemia, unspecified; I25.10 Atherosclerotic heart disease of native coronary artery without angina pectoris; K66.0 Peritoneal adhesions (postprocedural) (postinfection); R19.03 Right lower quadrant abdominal swelling, mass and lump; E78.5 Hyperlipidemia, unspecified; I10 Essential (primary) hypertension; I73.9 Peripheral vascular disease, unspecified; I35.1 Nonrheumatic aortic (valve) insufficiency; I65.29 Occlusion and stenosis of unspecified carotid artery; Z95.1 Presence of aortocoronary bypass graft; Z86.73 Personal history of transient ischemic attack (TIA), and cerebral infarction without residual deficits; Z82.49 Family history of ischemic heart disease and other diseases of the circulatory system; Z85.038 Personal history of other malignant neoplasm of large intestine
CPT/HCPCS: 36415; 45378; 74177; 74183; 76705; 78278; 80048; 80053; 81003; 82150; 82270; 82378; 83540; 83550; 83690; 83735; 84100; 84484; 85014; 85018; 85025; 85027; 85610; 85730; 86850; 86900; 86901; 86922; 88304; 93005; A4606; A9512; A9579; C9113; G0378; J0330; J0885; J1885; J2001; J2175; J2250; J2270; J2543; J2704; J2710; J3010; J3490; J7030; J7040; J7120; Q9967

== ENCOUNTER 2021-01-02 06:26 | Emergency (ER) | payer MEDICARE ==
[~2021-01-02] VITALS: Ht 175.3 cm; Wt 90.7 kg
[~2021-01-02 06:26] MED LIST changes: +AMLO-257 PO; +ASCO500T20 PO; -ASPI-1012 PO; +ASPI-556 PO; -COQ10 PO; +CYAN250010 PO; -FERR-82 PO; +FERR240T10 PO; +FERR324T4 PO; -FOLIC ACID PO; -GLUCOSAMIN PO; -HYDR-4457 PO; +MAGN400T7 PO; +PANT40TA PO; -ROSU10TA28 PO; -SENN-265 PO; +TRAM50TA4 PO; +UBID400C6 PO; -VITAMIN B12 PO
[2021-01-02 06:29] VITALS: BP 142/56
[2021-01-02 07:01] LABS: BASOPHILS % (AUTO) 0.8 % (0.0-5.0); EOSINOPHILS % (AUTO) 0.9 % (0.0-8.0); HEMATOCRIT 31.4 % (42-54); LYMPHOCYTES % (AUTO) 7.2 % (21.0-51.0); MEAN CORPUSCULAR HEMOGLOBIN 32.4 pg (27.0-33.0); MEAN CORPUSCULAR HGB CONC 29.3 g/dL (32.0-36.0); MEAN CORPUSCULAR VOLUME 110.6 fL (79-99); NEUTROPHILS % (AUTO) 84.8 % (40.0-77.0); PLATELET COUNT (AUTO) 316 K/uL (130-400); RED BLOOD CELL COUNT(AUTO) 2.84 MIL/uL (4.50-6.20); RED CELL DISTRIBUTION WIDTH 13.5 % (11.0-15.5); WHITE BLOOD COUNT (AUTO) 6.5 K/uL (4.8-10.8)
[2021-01-02 07:10] LABS: INR 0.95 (0.85-1.15); PROTHROMBIN TIME 10.4 SEC (9.6-11.6)
[2021-01-02 07:14] LABS: ALBUMIN 3.5 g/dL (3.5-5.0); BILIRUBIN,TOTAL 0.2 mg/dL (0.2-1.0); CREATININE 1.1 mg/dL (0.5-1.5); POTASSIUM 4.9 mmol/L (3.5-5.1); TOTAL PROTEIN, SERUM 6.9 g/dL (6.0-8.3)
[2021-01-02 07:30] VITALS: BP 143/57
== END 2021-01-02 10:20 | disposition home or self-care (01) ==
LOC: EDH 06:33
DX: D64.9 Anemia, unspecified (principal); R53.1 Weakness; I10 Essential (primary) hypertension; I25.10 Atherosclerotic heart disease of native coronary artery without angina pectoris; E78.5 Hyperlipidemia, unspecified; Z79.82 Long term (current) use of aspirin; Z86.73 Personal history of transient ischemic attack (TIA), and cerebral infarction without residual deficits; Z95.1 Presence of aortocoronary bypass graft
CPT/HCPCS: 36415; 71045; 80053; 84484; 85025; 85610; 86850; 86900; 86901

== ENCOUNTER → 2021-02-06 | Outpatient (CLI) | payer MEDICARE | END | disposition home or self-care (01) | LOC: RAH 15:10 | PROVIDERS: ATTEND Family Medicine | DX: M51.16 Intervertebral disc disorders with radiculopathy, lumbar region (principal); M48.061 Spinal stenosis, lumbar region without neurogenic claudication; M71.38 Other bursal cyst, other site | CPT/HCPCS: 72148 ==